=== PATIENT | male | born 1980 | race African-American/Black ===

== ENCOUNTER 2023-01-20 07:50 | Emergency (ER) | payer SELFPAY ==
[~2023-01-20] VITALS: Ht 177.8 cm; Wt 117.6 kg
[2023-01-20] MEDS ORDERED: METOPROLOL TARTRATE 25 MG TAB PO ONE ×2 (08:30→13:15)
[2023-01-20 08:32] LABS: Basophils # (auto) 0.1 10 ^3/uL (0-0.2); Basophils % (auto) 1.1 % (0.0-2.0); Eosinophils # (auto) 0.2 10 ^3/uL (0-0.8); Eosinophils % (auto) 1.7 % (0.0-7.0); Hematocrit 45.9 % (41.0-53.0); Hemoglobin 15.9 g/dL (13.5-17.5); Lymphocytes # (auto) 1.9 10 ^3/uL (0.4-5.4); Lymphocytes % (auto) 21.7 % (10.0-50.0); Mean Corpuscular Hemoglobin 31.6 pg (28.0-32.0); Mean Corpuscular Hgb Conc. 34.7 g/dL (32.0-36.0); Mean Corpuscular Volume 91.1 fL (80.0-100.0); Monocytes # (auto) 0.8 10 ^3/uL (0-1.3); Monocytes % (auto) 9.1 % (0.0-12.0); Neutrophils # (auto) 5.8 10 ^3/uL (1.6-8.6); Neutrophils % (auto) 66.4 % (37.0-80.0); Nucleated Red Blood Cells % 0.1 %; Red Blood Cells 5.04 10^6/uL (4.5-5.90); Red Cell Distribution Width 13.3 % (11.8-14.3); White Blood Cell 8.8 10^3/uL (4.4-10.8)
[2023-01-20 08:52] LABS: Calcium 9.1 mg/dL (8.5-10.1); Potassium 3.9 mmol/L (3.5-5.1)
[2023-01-20 08:57] LABS: Albumin 3.8 g/dL (3.4-5.0); BUN/Creatinine Ratio 17.3 (10.0-20.0); Bilirubin, Total 0.9 mg/dL (0.2-1.0); Total Protein 7.5 g/dL (6.4-8.2)
[2023-01-20] MEDS ORDERED: METO-289 PO (12:59)
[2023-01-20] MEDS ORDERED: LISI20TA28 PO (13:12)
[2023-01-20] MEDS ORDERED: hydrALAZINE HCL 10 MG TAB PO ONE (13:15)
[2023-01-20 14:21] VITALS: BP 192/113
== END 2023-01-20 14:22 | disposition home or self-care (01) ==
LOC: ER 07:50
DX: R04.0 Epistaxis (principal); I10 Essential (primary) hypertension
CPT/HCPCS: 36415; 71046; 80053; 83880; 84484; 85025; 93005